=== PATIENT | male | born 1950 | race Caucasian/White ===

== ENCOUNTER 2022-10-21 16:39 | Outpatient (CLI) | payer MEDICARE, OTHER, SELFPAY | END 2022-10-21 16:40 | disposition home or self-care (01) | LOC: AMB 10-22 01:35 | PROVIDERS: PCP Family Medicine; Visit Provider Family Medicine | DX: R53.81 Other malaise (principal); R53.1 Weakness | CPT/HCPCS: A0425; A0427 ==